=== PATIENT | male | born 1965 | race Caucasian/White ===

== ENCOUNTER 2022-07-08 01:43 | Emergency (ER) | payer OTHER ==
[2022-07-08 02:03] VITALS: BP 123/82; PULSE 83; RESP 20; TEMP 98; BMI 34.0
[2022-07-08 03:52] LABS: BASO % 0.6 % (0-2.0); EOS % 2.1 % (0-4.5); HEMOGLOBIN 13.4 GM/dL (11.7-16.9); LYMPH % 15.1 % (8-40); MCH 27.4 pg (25.7-33.7); MCHC 32.8 g/dl (32.0-35.9); MEAN CELL VOLUME 83.6 fl (80-96); MEAN PLT VOLUME 8.3 fl (7.5-11.1); MONO % 6.4 % (3.8-10.2); NEUT % 75.8 % (42.8-82.8); PLATELET COUNT 233 10^3/uL (134-434); RDW 13.4 % (11.9-15.9); WHITE BLOOD COUNT 7.5 K/mm3 (4.0-10.0)
[2022-07-08 04:13] LABS: CALCIUM 8.9 mg/dL (8.5-10.1)
[2022-07-08 04:14] LABS: ALBUMIN 3.6 g/dl (3.4-5.0); BLOOD UREA NITROGEN 11.2 mg/dL (7-18)
[2022-07-08 04:18] LABS: CREATININE 0.7 mg/dL (0.55-1.3); TOT PROT 7.2 g/dl (6.4-8.2)
[2022-07-08 04:45] LABS: BILIRUBIN,TOTAL 1.1 mg/dL (0.2-1)
== END 2022-07-08 06:48 | disposition home or self-care (01) ==
LOC: JER 01:43
DX: U07.1 COVID-19 (principal); R07.9 Chest pain, unspecified
CPT/HCPCS: 36415; 71046-TC-FY; 80053; 84484; 85025; 85379; 93005; 93010; 99285-25

== ENCOUNTER 2024-04-27 04:07 | Emergency (ER) | payer OTHER ==
[2024-04-27 04:16] VITALS: BMI 25.4
[2024-04-27] MEDS ORDERED: FAMOTIDINE 20 MG TABLET ONE (04:59)
[2024-04-27] MEDS ORDERED: MAG HYDROX/AL HYDROX/SIMETH 30 ML UNIT-DOSE CUP ONE (04:59)
[2024-04-27] MEDS ORDERED: PANTOPRAZOLE 40 MG TABLET PO ONE (04:59)
[2024-04-27] MEDS: PANTOPRAZOLE SOD 40 MG SUSPENSION PACKET PO ONE (05:16)
[2024-04-27] MEDS: FAMOTIDINE 20 MG TABLET PO ONE (05:16)
[2024-04-27] MEDS: MAG HYDROX/AL HYDROX/SIMETH 30 ML UNIT-DOSE CUP PO ONE (05:16)
[2024-04-27] MEDS: PANTOPRAZOLE 40 MG TABLET PO ONE (05:17)
[2024-04-27 05:37] LABS: BASO % 0.3 % (0-2.0); EOS % 0.7 % (0-4.5); HEMATOCRIT 43.9 % (35.4-49); HEMOGLOBIN 14.8 GM/dL (11.7-16.9); LYMPH % 16.6 % (8-40); MCH 28.1 pg (25.7-33.7); MCHC 33.7 g/dl (32.0-35.9); MEAN CELL VOLUME 83.2 fl (80-96); MEAN PLT VOLUME 8.3 fl (7.5-11.1); MONO % 4.3 % (3.8-10.2); NEUT % 78.1 % (42.8-82.8); PLATELET COUNT 211 10^3/uL (134-434); RBC 5.28 M/mm3 (4.00-5.60); RDW 13.5 % (11.9-15.9); WHITE BLOOD COUNT 8.7 K/mm3 (4.0-10.0)
[2024-04-27] MEDS ORDERED: ASPIRIN 81 MG CHEWABLE TABLETS ONE ×2 (05:43→05:49)
[2024-04-27 05:51] LABS: INR 0.99 (0.83-1.09); PROTHROMBIN TIME (PATIENT) 11.2 SEC (9.7-13.0)
[2024-04-27 05:53] LABS: ACTIVATED PTT 34.8 SECONDS (25.2-36.5)
[2024-04-27] MEDS: ASPIRIN 81 MG CHEWABLE TABLETS PO ONE (05:55)
[2024-04-27] MEDS: SIMETHICONE 80 MG TAB.CHEW (FP) PO PRN (06:27)
[2024-04-27 07:28] LABS: POTASSIUM 3.6 mmol/L (3.5-5.1)
[2024-04-27 07:30] LABS: CALCIUM 8.7 mg/dL (8.5-10.1)
[2024-04-27 07:31] LABS: ALBUMIN 3.8 g/dl (3.4-5.0); BLOOD UREA NITROGEN 15.4 mg/dL (7-18); MAGNESIUM 2.1 mg/dL (1.8-2.4)
[2024-04-27 07:34] LABS: CREATININE 0.8 mg/dL (0.55-1.3)
[2024-04-27 07:35] LABS: BILIRUBIN,TOTAL 1.2 mg/dL (0.2-1); TOT PROT 7.2 g/dl (6.4-8.2)
[2024-04-27 08:33] VITALS: BP 128/82; PULSE 82; RESP 18; TEMP 98.3
== END 2024-04-27 09:11 | disposition home or self-care (01) ==
LOC: JER 04:07
DX: K21.9 Gastro-esophageal reflux disease without esophagitis (principal); R10.13 Epigastric pain
CPT/HCPCS: 36415; 80053; 82550; 83690; 83735; 84484; 85025; 85610; 85730; 93005; 93010; 99284-25